=== PATIENT | male | born 1940 | race Caucasian/White ===

== ENCOUNTER 2020-04-07 18:37 | Emergency (ER) | payer MEDICARE ==
--- NOTE | 2020-04-07 20:41 | CT ---
CT BRAIN WITHOUT CONTRAST: 04/07/20 HISTORY: Injury. Left eye pain. There are changes of cortical atrophy and chronic small vessel ischemic disease. No evidence of acute infarct, hemorrhage, midline shift, or abnormal extra-axial fluid collection is noted. The ventricul ar size is appropriate and the basilar cisterns patent. The bony calvarium is intact. The visualized paranasal sinuses and mastoid air cells are well aerated. There is a fracture involving the left nasa l bone. IMPRESSION: 1. No CT evidence of acute intracranial process. 2. Left nasal bone fracture. POS: [facility]
--- NOTE | 2020-04-07 20:44 | CT ---
CT FACIAL BONES WITH CORONAL AND SAGITTAL REFORMATIONS: 04/07/20 HISTORY: Facial laceration to bridge of nose, swelling, accompanied by left eye pain. Mechanical fall. FINDINGS: There are fractures involving the nasal bones bilaterally with minimal displacement on the left. The remainder of the facial bones are otherwise intact. No temporomandibular dislocation is seen on eithe r side. No air fluid levels are noted in the paranasal sinuses. There is mild mucosal disease in the paranasal sinuses. IMPRESSION: Nasal bone fractures. POS: [facility]
== END 2020-04-07 20:50 | disposition home or self-care (01) ==
LOC: EDBD 18:37 → NAV ERS 18:37
DX: S02.2XXA Fracture of nasal bones, initial encounter for closed fracture (principal); E78.5 Hyperlipidemia, unspecified; E78.00 Pure hypercholesterolemia, unspecified; I10 Essential (primary) hypertension; Z87.891 Personal history of nicotine dependence; Z79.899 Other long term (current) drug therapy; W19.XXXA Unspecified fall, initial encounter
CPT/HCPCS: 70450; 70486

== ENCOUNTER 2024-04-06 07:35 | Inpatient (IN) | payer OTHER ==
[2024-04-06] MEDS ORDERED: Ondansetron ODT 4 MG TAB SL PRN (12:54)
[2024-04-06] MEDS ORDERED: Acetaminophen 325 MG TAB PO PRN (12:54)
[2024-04-06] MEDS ORDERED: Ipratropium/Albuterol 3 ML NEB NEB PRN (12:54)
[2024-04-06] MEDS ORDERED: Bisacodyl 5 MG TAB PO PRN (12:54)
[2024-04-06] MEDS: Calcium Carbonate 600 MG + Vit D TAB PO SCH (17:20)
[2024-04-06] MEDS: Atorvastatin Calcium 40 MG TAB PO SCH (20:30)
[2024-04-06] MEDS: Terazosin HCl 5 MG CAP PO SCH (20:30)
[2024-04-06] MEDS: Famotidine 20 MG TAB PO SCH (20:30)
[2024-04-07 06:07] LABS: #Basophils 0.1 thou/uL (0.0-0.2); #Eosinphils 0.1 thou/uL (0.0-0.7); #Lymphocytes 1.3 thou/uL (1.20-3.40); #Monocytes 0.6 thou/uL (0.11-0.59); #Neutrophils 3.9 thou/uL (1.40-6.50); %Eosinophils 1.8 % (0.0-10.0); %Lymphocytes 21.5 % (21.0-51.0); %Monocytes 9.9 % (0.0-10.0); %Neutrophils 65.8 % (42.0-75.0); Hematocrit 28.9 % (42.0-52.0); Hemoglobin 9.4 g/dL (14.0-18.0); Mean Corpuscular HGB CONC 32.6 g/dL (32.0-36.0); Mean Corpuscular Hemoglobin 29.8 pg (27.0-31.0); Mean Corpuscular Volume 91.4 fl (78.0-98.0); Mean Platelet Volume 6.7 fL (7.4-10.4); Platelet Count 167 10x3/uL (130-400); RBC Distribution Width 12.5 % (11.5-14.5); Red Blood Cell (RBC) Count 3.17 mill/uL (4.70-6.10); White Blood Cell (WBC) Count 5.9 10x3/uL (4.8-10.8)
[2024-04-07 06:20] LABS: ALT (SGPT) 24 U/L (8-55); AST (SGOT) 22 U/L (5-34); Albumin 2.8 g/dL (3.4-4.8); Alkaline Phosphatase 66 U/L (40-110); Anion Gap 12 mmol/L (10-20); BUN (Urea Nitrogen) 11 mg/dL (8.4-25.7); Bilirubin, Total 1.2 mg/dL (0.2-1.2); Calc. Creatinine Clearance 110 mL/min (70-130); Calcium 8.9 mg/dL (7.8-10.44); Carbon Dioxide 27 mmol/L (23-31); Chloride 107 mmol/L (98-107); Estimated GFR 94; Globulin 2.6 g/dL (2.4-3.5); Glucose 118 mg/dL (83-110); Potassium 3.8 mmol/L (3.5-5.1); Protein, Total 5.4 g/dL (5.8-8.1); Sodium 142 mmol/L (136-145)
[2024-04-07] MEDS: HYDROcodone/Acetaminophen 5/325 mg Tablet PO PRN (08:24)
[2024-04-07] MEDS: Losartan 50 MG TAB PO SCH (08:26)
[2024-04-07] MEDS: Cholecalciferol 1,000 UNITS (25 MCG) TAB PO SCH (08:27)
[2024-04-07] MEDS: Fish Oil 1,000 MG CAP PO SCH (08:27)
[2024-04-07] MEDS: Enoxaparin 40 MG (0.4 mL) SYRINGE SC SCH (08:27)
[2024-04-07] MEDS: Polyethylene Glycol 3350 17 GM Packet PO SCH (08:28)
[2024-04-07 11:52] LABS: Hemoglobin A1c 5.5 % (4.0-6.0)
[2024-04-09] MEDS: Bisacodyl 10 MG SUPP PR PRN (12:48)
[2024-04-09] MEDS: Acetaminophen 325 MG TAB PO PRN (15:45)
[2024-04-09] MEDS: Senokot S 8.6-50 MG TAB PO PRN (17:57)
[2024-04-11] MEDS: ZYRTEC 10MG PO PRN (20:26)
[2024-04-15 05:58] LABS: #Eosinphils 0.1 thou/uL (0.0-0.7); #Lymphocytes 1.6 thou/uL (1.20-3.40); #Monocytes 0.6 thou/uL (0.11-0.59); #Neutrophils 3.5 thou/uL (1.40-6.50); %Basophils 0.7 % (0.0-1.0); %Eosinophils 2.2 % (0.0-10.0); %Lymphocytes 26.9 % (21.0-51.0); %Monocytes 10.3 % (0.0-10.0); %Neutrophils 59.9 % (42.0-75.0); Hematocrit 33.8 % (42.0-52.0); Hemoglobin 10.5 g/dL (14.0-18.0); Mean Corpuscular HGB CONC 31.1 g/dL (32.0-36.0); Mean Corpuscular Hemoglobin 29.3 pg (27.0-31.0); Mean Corpuscular Volume 94.1 fl (78.0-98.0); Mean Platelet Volume 5.2 fL (7.4-10.4); Platelet Count 324 10x3/uL (130-400); RBC Distribution Width 14.1 % (11.5-14.5); Red Blood Cell (RBC) Count 3.59 mill/uL (4.70-6.10); White Blood Cell (WBC) Count 5.8 10x3/uL (4.8-10.8)
[2024-04-15 06:11] LABS: Anion Gap 13 mmol/L (10-20); BUN (Urea Nitrogen) 15 mg/dL (8.4-25.7); Calc. Creatinine Clearance 87 mL/min (70-130); Calcium 9.3 mg/dL (7.8-10.44); Carbon Dioxide 27 mmol/L (23-31); Chloride 108 mmol/L (98-107); Estimated GFR 87; Glucose 107 mg/dL (83-110); Potassium 4.7 mmol/L (3.5-5.1); Sodium 143 mmol/L (136-145)
[2024-04-16] MEDS: Melatonin 3 MG TAB PO SCH (20:36)
[2024-04-18 05:08] VITALS: BMI 30.7
[2024-04-18] MEDS ORDERED: Bisacodyl 10 MG SUPP PR PRN (10:04)
[2024-04-19] MEDS ORDERED: Bisacodyl 10 MG SUPP PR PRN (12:07)
[2024-04-22 14:48] VITALS: BMI 30.7
[2024-04-23 07:37] VITALS: BP 137/72; TEMP 98.2
== END 2024-04-23 11:10 | disposition home or self-care (01) | DRG 559 ==
LOC: NAV ACUTE 13:59
PROVIDERS: ADMIT Family Medicine; ATTEND Family Medicine
PROC: 5A09357 Assistance with Respiratory Ventilation, Less than 24 Consecutive Hours, Continuous Positive Airway Pressure (ICD-10-PCS; principal; 2024-04-20)
DX: S72.002D Fracture of unspecified part of neck of left femur, subsequent encounter for closed fracture with routine healing (principal); J96.01 Acute respiratory failure with hypoxia; I13.0 Hypertensive heart and chronic kidney disease with heart failure and stage 1 through stage 4 chronic kidney disease, or unspecified chronic kidney disease; I50.32 Chronic diastolic (congestive) heart failure; R53.81 Other malaise; I10 Essential (primary) hypertension; J30.2 Other seasonal allergic rhinitis; E78.5 Hyperlipidemia, unspecified; G47.33 Obstructive sleep apnea (adult) (pediatric); N40.0 Benign prostatic hyperplasia without lower urinary tract symptoms; M19.90 Unspecified osteoarthritis, unspecified site; E11.22 Type 2 diabetes mellitus with diabetic chronic kidney disease; N18.2 Chronic kidney disease, stage 2 (mild); I25.10 Atherosclerotic heart disease of native coronary artery without angina pectoris; Z96.651 Presence of right artificial knee joint; Z96.642 Presence of left artificial hip joint; Z98.890 Other specified postprocedural states; Z88.2 Allergy status to sulfonamides; Z91.013 Allergy to seafood; Z88.8 Allergy status to other drugs, medicaments and biological substances
CPT/HCPCS: 36415; 80048; 80053; 82565; 83036; 85025; J1650